=== PATIENT | female | born 1945 | race Caucasian/White ===

== ENCOUNTER 2018-11-08 09:13 | Emergency (ER) | payer OTHER, MEDICARE ==
[~2018-11-08] VITALS: Ht 157.5 cm; Wt 75.0 kg
[2018-11-08] MEDS ORDERED: morphine 4 MG/ML VIAL IV STA (09:24)
[2018-11-08] MEDS ORDERED: ONDANSETRON 4 MG INJ IV STA (09:24)
[2018-11-08] MEDS: DIAZEPAM 5 MG TAB PO ONE ×2 (09:30→11:29)
[2018-11-08 09:34] VITALS: Ht 157.5 cm; Wt 75.0 kg
--- NOTE | 2018-11-08 09:35 | ERD ---
ER Documentation Chief Complaint Chief Complaint HPI This is a 73-year-old Welsh-speaking female that was brought to the emergency department by EMS from an adult daycare center complaining of left lower quadrant abdominal pain. The patient indicates that the abdominal pain is a throbbing-like sensation. She states it has been present for several months but progressively worsened just prior to arrival. She also indicates that she is complaining of left flank pain that radiates to the buttocks on the lateral aspect of her left leg. She indicates that pain as well has been present for several months which is worse than prior to arrival as well. She states the pain is 10 out of 10 in intensity. It is worse when she ambulates. She denies any changes in her bladder or bowel frequency. She has no fevers or shaking or chills. She denies any saddle anesthesia. The patient has a past medical history of hypertension neuropathy depression osteoarthritis and mild dementia. ROS All systems reviewed and are negative except as per history of present illness. Medications Home Meds Active Scripts Cyclobenzaprine Hcl* (Cyclobenzaprine Hcl*) 10 Mg Tablet, 10 MG PO TID, #10 TAB Prov:SUSAN ALEMAN MD 11/08/18 Ibuprofen* (Motrin*) 600 Mg Tab, 600 MG PO Q6H PRN for PAIN AND OR ELEVATED TEMP, #30 TAB Prov:SUSAN ALEMAN MD 11/08/18 Cephalexin* (Cephalexin*) 500 Mg Capsule, 500 MG PO Q6 for 10 Days, #40 CAP Prov:SUSAN ALEMAN MD 11/08/18 Reported Medications Ibuprofen* (Ibuprofen*) 800 Mg Tablet, 800 MG PO BID PRN for PAIN, TAB 11/08/18 Aspirin* (Aspirin* EC) 81 Mg Tablet.dr, 81 MG PO DAILY, TAB 11/08/18 Memantine* (Namenda* XR) 28 Mg Cap.spr.24, 28 MG PO DAILY, #30 TAB 11/08/18 Gabapentin* (Gabapentin*) 100 Mg Capsule, 100 MG PO QAM, #90 CAP 11/08/18 Atorvastatin Calcium* (Atorvastatin Calcium*) 20 Mg Tablet, 20 MG PO QHS, #30 TAB 11/08/18 Atenolol* (Atenolol*) 25 Mg Tablet, 25 MG PO DAILY, #30 TAB 11/08/18 Nitroglycerin* (Nitroglycerin* SL) 0.4 Mg Tab.subl, 0.4 MG SL Q5MIN PRN for CHEST PAIN, BOTTLE 11/08/18 Allergies Allergies: Coded Allergies: No Known Drug Allergies (Verified Allergy, Unknown, 11/08/18) PMhx/Soc History of Surgery: Yes (HYSTEROSCOPY) Anesthesia Reaction: No Hx Neurological Disorder: No Hx Respiratory Disorders: No Hx Cardiac Disorders: No Hx Psychiatric Problems: No Hx Miscellaneous Medical Probl: Yes (HIGH CHOLESTEROL) Hx Alcohol Use: No Hx Substance Use: No Hx Tobacco Use: No Physical Exam Vitals Vital Signs Date Temp Pulse Resp B/P (MAP) Pulse Ox O2 O2 Flow FiO2 Time Delivery Rate 11/08/18 98.1 88 16 160/95 98 09:34 (116) Physical Exam Constitutional:Well-developed. Well-nourished. HEENT:Normocephalic. Atraumatic.Pupils were equal round reactive to light. Moist mucous membranes.No tonsillar exudates. Neck: No nuchal rigidity. No lymphadenopathy. No posterior cervical spine tenderness or step-offs. Respiratory: Not using accessory muscles of respiration.Lungs were clear to auscultation bilaterally. No rhonchi. No rales. No wheezing. Cardiovascular: Regular rate regular rhythm.No murmurs. No rubs were appreciated.S1, S2 normal. Distal pulses are palpable 2+ bilaterally. GI: Abdomen was soft. Left lower quadrant tenderness. Non Distended. No pulsatile abdominal masses or bruits. No rebound. No guarding. Bowel sounds were present and normal. Muscle skeletal: Full range of motion of both the upper and lower extremities bilaterally.Normal muscle tone.No assymetrical calf tenderness or swelling. No tenderness with palpation or percussion of the thoracic or lumbar spinous processes. Straight leg test positive on the left Skin: No petechia, no purpura. No lesions on the palms or the soles of the feet. No maculopapular rash. NEURO: Patient was alert, awake, orientated x3.No facial droop. Gait observed and normal with no ataxia.Speech had regular rate and rhythm. No focal neurological deficits. Result Diagram: 11/08/18 1000 11/08/18 1000 Results 24 hrs Laboratory Tests Test 11/08/18 10:00 White Blood Count 7.9 10^3/ul Red Blood Count 4.43 10^6/ul Hemoglobin 13.8 g/dl Hematocrit 40.7 % Mean Corpuscular Volume 91.9 fl Mean Corpuscular Hemoglobin 31.2 pg Mean Corpuscular Hemoglobin Concent 33.9 g/dl Red Cell Distribution Width 12.2 % Platelet Count 192 10^3/UL Mean Platelet Volume 9.0 fl Immature Granulocytes % 0.300 % Neutrophils % 81.1 % Lymphocytes % 11.9 % Monocytes % 5.8 % Eosinophils % 0.5 % Basophils % 0.4 % Nucleated Red Blood Cells % 0.0 /100WBC Immature Granulocytes # 0.020 10^3/ul Neutrophils # 6.4 10^3/ul Lymphocytes # 0.9 10^3/ul Monocytes # 0.5 10^3/ul Eosinophils # 0.0 10^3/ul Basophils # 0.0 10^3/ul Nucleated Red Blood Cells # 0.0 10^3/ul Prothrombin Time 11.8 Sec Prothrombin Time Ratio 0.9 INR International Normalized Ratio 0.86 Activated Partial Thromboplast Time 23.3 Sec Urine Color STRAW Urine Clarity SLIGHTLY CLOUDY Urine pH 8.0 Urine Specific Armour 1.008 Urine Ketones NEGATIVE mg/dL Urine Nitrite NEGATIVE mg/dL Urine Bilirubin NEGATIVE mg/dL Urine Urobilinogen NEGATIVE mg/dL Urine Leukocyte Esterase 3+ Jaden/ul Urine Microscopic RBC 3 /HPF Urine Microscopic WBC 14 /HPF Urine Squamous Epithelial Cells FEW /HPF Urine Bacteria FEW /HPF Urine Mucus FEW /HPF Urine Hemoglobin 1+ mg/dL Urine Glucose NEGATIVE mg/dL Urine Total Protein NEGATIVE mg/dl Sodium Level 142 mmol/L Potassium Level 3.7 mmol/L Chloride Level 109 mmol/L Carbon Dioxide Level 24 mmol/L Anion Gap 9 Blood Urea Nitrogen 13 mg/dl Creatinine 0.63 mg/dl Est Glomerular Filtrat Rate mL/min mL/min Glucose Level 109 mg/dl Calcium Level 10.0 mg/dl Total Bilirubin 1.3 mg/dl Direct Bilirubin 0.00 mg/dl Indirect Bilirubin 1.3 mg/dl Aspartate Amino Transf (AST/SGOT) 22 IU/L Alanine Aminotransferase (ALT/SGPT) 17 IU/L Alkaline Phosphatase 74 IU/L Troponin I < 0.012 ng/ml Total Protein 7.8 g/dl Albumin 4.4 g/dl Globulin 3.40 g/dl Albumin/Globulin Ratio 1.29 Amylase Level 91 U/L Lipase 107 U/L Current Medications Medications Dose Sig/Diana Start Time Status Last (Trade) Ordered Route PRN Stop Time Admin Dose Reason Admin Morphine 4 mg ONCE STAT 11/08/18 DC Sulfate IV 09:24 (morphine) 11/08/18 09:25 Ondansetron 4 mg ONCE STAT 11/08/18 DC HCl (Zofran IV 09:24 Inj) 11/08/18 09:26 Diazepam 5 mg ONCE ONCE 11/08/18 DC 11/08/18 (Valium) PO 09:30 11:29 11/08/18 09:31 IV Flush 10 ml STK-MED 11/08/18 DC 11/08/18 (NS 10 ml) ONCE .ROUTE 11:40 12:15 11/08/18 11:41 Sodium 100 ml @ ud STK-MED 11/08/18 DC 11/08/18 Chloride ONCE .ROUTE 11:40 12:15 11/08/18 11:41 Iohexol 150 ml STK-MED 11/08/18 DC 11/08/18 (Omnipaque ONCE .ROUTE 11:40 12:16 300mg/ ml) 11/08/18 11:41 Procedures/MDM This patient presented to the emergency department with abdominal pain and was seen and evaluated by myself. My differential diagnosis included but was not limited to abdominal aortic aneurysm, appendicitis, pancreatitis, perforated peptic ulcer, perforated viscus, Boerhaaves syndrome or visceral pain such as diverticulitis, DKA, esophagitis, hepatitis or bowel obstruction. The patient was placed on a oil and gas field technician, continuous pulse oximetry, and IV access was established by nursing staff. She was refusing opiate analgesic control but did take the muscle relaxant volume. I obtained a CT scan of the patient's abdomen due to the tenderness in the left lower quadrant which was reviewed by the radiologist and indeed the followin. No evidence of acute intra-abdominal/pelvic inflammatory process. No obstruction. The appendix is within normal limits. 2. Atherosclerotic disease of the aorta. 3. No gross renal/ureteric calculi. No evidence of obstructive uropathy. 4. No evidence of free fluid or free air. No gross focal fluid collections. 5. 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 Severely possibility of pelvic congestion syndrome. Findings were discussed with the patient and polisher sand being her daughter was now present as the patient is only Welsh-speaking. Indicated that they could follow up on an outpatient basis with respect to the pelvic congestion syndrome but the patient did have a urinary tract infection and will be sent home with antibiotics which also could be exacerbating her symptoms in addition with sciatica. The patient had no evidence of cauda equina syndrome. I obtained a 12-lead EKG tracing to rule for atypical myocardial infarction. 12 Lead EKG tracing ordered and reviewed by myself showed: Normal sinus rhythm of 88 bpm and no arrhythmia. [place] interval normal. QRS duration normal. Left axis deviation. No ST segment elevation No ST segment depression. No changes consistent with acute ischemia. The patient was discharged home in fair condition. They were instructed to return to the emergency department at any time if there was any worsening of their condition. The patient stated they would follow up with their PCP in the next 24-48 hours to initiate a suitable medication regimen under the care of their PCP as well as to allow their PCP to monitor any drug reactions. The patient was discharged home with prescriptions after they gave informed consent to the new medication. They were also fully informed by myself on the adverse effects and adverse drug interactions in order to provide adequate safeguards to prevent possible adverse reactions to medications. Departure Diagnosis: Primary Impression: Sciatica Laterality: left Qualified Codes: M54.32 - Sciatica, left side Additional Impression: Urinary tract infection Urinary tract infection type: acute cystitis Hematuria presence: without hematuria Qualified Codes: N30.00 - Acute cystitis without hematuria Condition: SUSAN Jo MD Nov 08, 2018 09:35
[2018-11-08] MEDS ORDERED: ATEN-51 PO (10:11)
[2018-11-08] MEDS ORDERED: NITR0.4T32 SL (10:11)
[2018-11-08] MEDS ORDERED: GABA100C14 PO (10:12)
[2018-11-08] MEDS ORDERED: ATOR20TA38 PO (10:12)
[2018-11-08] MEDS ORDERED: MEMA28CA PO (10:13)
[2018-11-08] MEDS ORDERED: ASPI-817 PO (10:13)
[2018-11-08] MEDS ORDERED: IBUP-1544 PO (10:14)
[2018-11-08] MEDS ORDERED: IOHEXOL 300MG/ML 150 ML BTL ONE (11:40)
[2018-11-08] MEDS ORDERED: SOD CHLORIDE 0.9% 100 ML ONE (11:40)
[2018-11-08] MEDS ORDERED: CYCL10TA7 PO (12:59)
[2018-11-08] MEDS ORDERED: CEPH500C PO (12:59)
[2018-11-08] MEDS ORDERED: IBUP-1542 PO (12:59)
[2018-11-08 13:07] VITALS: BP 121/86; PULSE 67; RESP 19
== END 2018-11-08 13:15 | disposition home or self-care (01) ==
LOC: E/R 09:13
DX: M54.32 Sciatica, left side (principal); N30.00 Acute cystitis without hematuria; I10 Essential (primary) hypertension; Z79.82 Long term (current) use of aspirin
CPT/HCPCS: 74177; 80053; 81001; 82150; 83690; 84484; 85025; 85610; 85730; 87086; 93005; Q9967; Z7502; Z7610